=== PATIENT | male | born 1970 | race Two or more races ===

== ENCOUNTER 2017-04-27 20:33 | Emergency (ER) | payer SELFPAY ==
[~2017-04-27] VITALS: Ht 172.7 cm; Wt 72.6 kg
[2017-04-27] MEDS ORDERED: IBUPROFEN600 MG ORAL (21:25)
--- NOTE | 2017-04-27 21:26 | Emergency Room Report ---
History of Present Illness General Chief Complaint: Generalized Weakness Source: Patient, EMS Present Illness HPI This is a 46-year-old male who presents with chief of left hip pain and if he walking. He had a hip replacement over a decade ago. Since then is having trouble walking. He never got physical therapy. He came in because he said his heart from the walk around without any assistance. Denies any trauma. Denies any fall. Pain is chronic in nature. He wants to get a cane or walker to help him. No other complaint. No fever chills. Allergies: Coded Allergies: UNABLE TO ASSESS (Unverified , 04/27/17) Patient History Past Medical History: see triage record, old chart reviewed Past Surgical History: other Pertinent Family History: none Social History: Denies: drug use Immunizations: other Reviewed Nursing Documentation: PMH: Agreed, PSxH: Agreed Review of Systems Eye: Denies: eye pain, blurred vision ENT: Denies: ear pain, nose congestion, throat swelling Respiratory: Denies: cough, shortness of breath Cardiovascular: Denies: chest pain, palpitations Gastrointestinal: Denies: abdominal pain, diarrhea, nausea, vomiting Musculoskeletal: Reports: joint pain, Denies: back pain Skin: Denies: rash Neurological: Denies: headache, numbness Endocrine: Denies: increased thirst, increased urine Hematologic/Lymphatic: Denies: easy bruising All Other Systems: negative except mentioned in HPI Physical Exam Vital Signs Date Time Temp Pulse Resp B/P (MAP) Pulse Ox O2 Delivery O2 Flow Rate FiO2 04/27/17 20:29 98.1 93 15 134/85 98 Room Air vitals normal Sp02 EP Interpretation: reviewed, normal General Appearance: well appearing, no apparent distress, alert Head: normocephalic, atraumatic Eyes: bilateral eye PERRL, bilateral eye EOMI ENT: hearing grossly normal, normal pharynx Neck: full range of motion, supple, no meningismus Respiratory: chest non-tender, lungs clear, normal breath sounds Cardiovascular #1: regular rate, rhythm, no murmur Gastrointestinal: normal bowel sounds, non tender, no mass, no organomegaly, no bruit, non-distended Musculoskeletal: back normal, normal range of motion, other - Left hip surgical scar is clean without any evidence of infection. Psychiatric: mood/affect normal Skin: warm/dry Medical Decision Making Diagnostic Impression: Primary Impression: Arthralgia of left hip ER Course Patient presents with left hip pain. No new issue going on. We'll discharge home. no evidence of of infection. Last Vital Signs Date Time Temp Pulse Resp B/P (MAP) Pulse Ox O2 Delivery O2 Flow Rate FiO2 04/27/17 20:29 98.1 93 15 134/85 98 Room Air Status: improved Disposition: HOME, SELF-CARE Condition: Stable Scripts Ibuprofen* (MOTRIN*) 600 Mg Tablet 600 MG ORAL THREE TIMES A DAY, #30 TAB 0 Refills Prov: CLARITA LEE M.D. 04/27/17 Additional Instructions: Followup with your Dr. in 7 days as needed. Return if worse. CLARITA LEE M.D. Apr 27, 2017 21:26
[2017-04-27 21:41] VITALS: BP_SYST 132; BP_DIAS 87; BP_DIAS 89
== END 2017-04-27 21:41 | disposition home or self-care (01) ==
LOC: EDBD 20:33 → EMR 21:37
DX: M25.552 Pain in left hip (principal); R53.1 Weakness
CPT/HCPCS: 99283